=== PATIENT | female | born 1960 | race Caucasian/White ===

== ENCOUNTER 2016-11-07 10:41 | Emergency (ER) | payer OTHER ==
[~2016-11-07] VITALS: Ht 167.6 cm; Wt 53.5 kg
[~2016-11-07 10:41] MED LIST: ASPIR-LOW81 MG PO; FLAGYL I.V500 MG/100 PO; FLAGYL500 MG; FLEXERIL10 MG PO; KEFLEX500 MG PO; Lopressor25 MG PO; PERCOCET 325 MG1 TA7 PO; TRAMADOL HCL50 MG PO; VICODIN 5/500 505 MG PO; XANAX0.5 MG PO; ZESTRIL20 MG PO
[2016-11-07] MEDS ORDERED: ANAPROX DS550 MG PO (12:04)
== END 2016-11-07 12:19 | disposition home or self-care (01) ==
LOC: ED 10:41
DX: S93.401A Sprain of unspecified ligament of right ankle, initial encounter (principal); F17.200 Nicotine dependence, unspecified, uncomplicated; Z88.0 Allergy status to penicillin; Z79.82 Long term (current) use of aspirin; W19.XXXA Unspecified fall, initial encounter; Y93.89 Activity, other specified; Y92.9 Unspecified place or not applicable; Y99.9 Unspecified external cause status

== ENCOUNTER → 2017-02-07 | Outpatient (CLI) | payer OTHER ==
[~2017-02-07] MED LIST changes: +ANAPROX DS550 MG PO
[2017-02-07 12:31] LABS: BASO # 0.1 10*3/uL (0.0-0.1); BASO % 0.7 % (0.0-1.0); EOS # 0.2 10*3/uL (0.0-0.4); EOS % 2.9 % (1.0-4.0); HEMOGLOBIN 14.5 g/dl (12.0-16.0); LYMPH # 2.1 10*3/uL (1.3-4.4); LYMPH % 30.3 % (27.0-41.0); MEAN CELL VOLUME 95.8 fl (81.0-99.0); MEAN CORPUSCULAR HGB 32.3 pg (27.0-31.0); MEAN CORPUSCULAR HGB CONC 33.7 g/dl (33.0-37.0); MEAN PLATELET VOLUME 10.1 fl (9.6-12.3); MONO # 0.5 10*3/uL (0.1-1.0); MONO % 6.9 % (3.0-9.0); NEUT % 59.1 % (47.0-73.0); PLATELET COUNT AUTOMATED 177 10*3/uL (130-400); RED BLOOD COUNT 4.49 10*6/uL (4.10-5.10); RED CELL DISTRI WIDTH 12.6 % (0-14.5); WHITE BLOOD COUNT 6.8 10*3/uL (4.8-10.8)
== END | disposition home or self-care (01) ==
LOC: LAB 12:06
PROVIDERS: Internal Medicine Hematology & Oncology
DX: D72.820 Lymphocytosis (symptomatic) (principal)